=== PATIENT | female | born 1990 | race African-American/Black ===

== ENCOUNTER 2020-02-22 10:19 | Inpatient (IN) ==
[2020-02-22] MEDS ORDERED: MEPERIDINE 50 MG/1 ML VIAL IV PRN (10:42)
[2020-02-22] MEDS ORDERED: ONDANSETRON 4 MG/2 ML VIAL IV PRN ×2 (10:42→17:47)
[2020-02-22] MEDS ORDERED: BUTORPHANOL 2 MG/ML VIAL IV PRN (10:42)
[2020-02-22] MEDS ORDERED: NALOXONE 0.4 MG/ML VIAL IV PRN (10:46)
[2020-02-22] MEDS ORDERED: diphenhydrAMINE 50 MG/1 ML VIAL IV PRN ×2 (10:46)
[2020-02-22] MEDS ORDERED: ePHEDrine 50 MG/ML AMP IV PRN (10:46)
[2020-02-22] MEDS ORDERED: LACTATED RINGERS 1,000 ML IV ONE (10:46)
[2020-02-22] MEDS ORDERED: FAMOTIDINE 20 MG/2 ML VIAL IV ONE (10:46)
[2020-02-22] MEDS ORDERED: CITRIC ACID/SODIUM CITRATE 30 ML UDCUP PO ONE (10:46)
[2020-02-22] MEDS ORDERED: PROMETHAZINE 25 MG/1 ML VIAL IM ONE (10:46)
[2020-02-22] MEDS: LACTATED RINGERS 1,000 ML IV SCH (11:24)
[2020-02-22 11:25] LABS: Basophils % 0.1 % (0.0-0.8); Eosinophils % 0.2 % (0.00-10.9); Hematocrit 36.4 VOL% (35.7-47.0); Hemoglobin 12.2 GM/DL (12.0-16.0); Immature Granulocytes % 0.6 %; Immature Granulocytes Absolute 0.06 #; Lymphocytes # 2.3 10*3/uL (1.4-4.0); Lymphocytes % 21.5 % (21.3-54.2); Mean Corpuscular HGB Conc 33.5 GM/DL (32-36); Mean Corpuscular Volume 93.3 FL (87-102); Mean Platelet Volume 10.8 FL (9.6-12.0); Monocytes % 7.3 % (1.7-12.7); Neutrophils % 70.3 % (38.7-73.9); Platelet Count 191 T/CUMM (130-400); Red Cell Distribution Width 13.1 % (9.3-17.3); White Blood Count 10.6 T/CUMM (4-12)
[2020-02-22] MEDS: fentaNYL 2 MCG/ROPIV 0.2% EPID 100 ML EPIDURAL SCH (12:02)
[2020-02-22] MEDS: OXYTOCIN/LR 20 UNIT/1,000 ML BAG IV SCH ×2 (12:18→18:34)
[2020-02-22 12:50] LABS: Apearance,Urine CLEAR (Clear); Bacteria,Urine Occasional /HPF (Few); Bilirubin,Urine Negative (Negative); Blood, Urine Moderate mg/dL (Negative); Glucose,Urine (UA) Negative (Negative); Ketones,Urine Negative (Negative); Mucus,Urine Occasional /LPF (Occasional); Nitrite,Urine Negative (Negative); Protein,Urine Negative; RBC,Urine 1 /HPF (0-4); Squamous Epithelial Cell,Urine Occasional /HPF (0-10); Urine Color Yellow (Yellow); Urine Specific Gravity 1.015 (1.001-1.035); Urine Urobilinogen < 2.0 EU/DL (0.2-1.0); WBC,Urine 2 /HPF (0-6)
[2020-02-22 13:43] LABS: Apearance,Urine CLEAR (Clear); Bacteria,Urine Occasional /HPF (Few); Bilirubin,Urine Negative (Negative); Blood, Urine Negative (Negative); Glucose,Urine (UA) Negative (Negative); Ketones,Urine Negative (Negative); Mucus,Urine Occasional /LPF (Occasional); Nitrite,Urine Negative (Negative); Protein,Urine Negative; RBC,Urine <1 /HPF (0-4); Squamous Epithelial Cell,Urine Occasional /HPF (0-10); Urine Color Yellow (Yellow); Urine Urobilinogen < 2.0 EU/DL (0.2-1.0); WBC,Urine <1 /HPF (0-6)
[2020-02-22] MEDS ORDERED: ceFAZolin 2,000 MG in PREMIX 1 EACH IV ONE (14:17)
[2020-02-22] MEDS ORDERED: OXYTOCIN/LR 20 UNIT/1,000 ML BAG IV ONE (14:33)
[2020-02-22] MEDS ORDERED: miSOPROStoL 200 MCG TABLET ONE (14:33)
[2020-02-22] MEDS ORDERED: METHYLERGONOVINE 0.2 MG/1 ML AMP ONE (14:34)
[2020-02-22] MEDS ORDERED: CARBOPROST TROMETHAMINE 250 MCG/ML AMP IM ONE (14:34)
[2020-02-22] MEDS ORDERED: LIDOCAINE MPF 2% /EPI 20 ML VIAL ONE (14:35)
[2020-02-22] MEDS ORDERED: fentaNYL 100 MCG/2 ML VIAL ONE ×2 (14:36→15:48)
[2020-02-22] MEDS ORDERED: propofoL 200 MG/20 ML VIAL IV ONE (15:48)
[2020-02-22] MEDS ORDERED: MIDAZOLAM 2 MG/2 ML VIAL ONE (15:48)
[2020-02-22] MEDS ORDERED: SUCCINYLCHOLINE 200 MG/10 ML VIAL ONE (15:49)
[2020-02-22] MEDS: HYDROmorphone 2 MG/1 ML VIAL IV PRN ×2 (15:55→17:34)
[2020-02-22] MEDS ORDERED: oxyCODONE/ACETAMINOPHEN 5-325 MG TABLET PO PRN (17:47)
[2020-02-22] MEDS ORDERED: WITCH HAZEL PADS 100/JAR TOP PRN (17:47)
[2020-02-22] MEDS ORDERED: DIPH/TET/ACEL PERT BOOSTER VACCINE 0.5 ML VIAL IM ONE (17:47)
[2020-02-22] MEDS ORDERED: MEASLES/MUMPS/RUBELLA VACCINE 0.5 ML VIAL SUBCUT ONE (17:47)
[2020-02-22] MEDS ORDERED: HYDROCORTISONE 2.5% RECTAL CREAM 30 GM TUBE TOP PRN (17:47)
[2020-02-22] MEDS ORDERED: RHO(D) IMMUNE GLOBULIN 300 MCG SYRINGE IM ONE (17:47)
[2020-02-22] MEDS ORDERED: LANOLIN 50% CREAM 0.3 OZ TUBE TOP PRN (17:47)
[2020-02-22] MEDS ORDERED: BISACODYL 10 MG SUPP RECTAL PRN (17:47)
[2020-02-22] MEDS ORDERED: BENZOCAINE 20%/MENTHOL 0.5% SPRAY 56 GM CAN TOP PRN (17:47)
[2020-02-22] MEDS ORDERED: ACETAMINOPHEN 325 MG TABLET PO PRN (17:47)
[2020-02-22] MEDS: IBUPROFEN 800 MG TABLET PO PRN (18:05)
[2020-02-22] MEDS: DOCUSATE SODIUM 100 MG CAPSULE PO SCH (21:09)
[2020-02-22] MEDS: ceFAZolin 1,000 MG in SYRINGE 1 EACH IV SCH (22:30)
[2020-02-23] MEDS: LACTATED RINGERS 1,000 ML IV SCH ×3 (01:31→02:52)
[2020-02-23] MEDS: fentaNYL 2 MCG/ROPIV 0.2% EPID 100 ML EPIDURAL SCH (01:44)
[2020-02-23] MEDS: oxyCODONE/ACETAMINOPHEN 5-325 MG TABLET PO PRN ×3 (03:58→17:50)
[2020-02-23] MEDS: IBUPROFEN 800 MG TABLET PO PRN ×2 (03:59→13:06)
[2020-02-23 05:49] LABS: Basophils % 0.2 % (0.0-0.8); Eosinophils % 0.1 % (0.00-10.9); Hematocrit 31.3 VOL% (35.7-47.0); Hemoglobin 10.6 GM/DL (12.0-16.0); Immature Granulocytes % 0.6 %; Lymphocytes # 1.7 10*3/uL (1.4-4.0); Lymphocytes % 10.1 % (21.3-54.2); Mean Corpuscular HGB Conc 33.9 GM/DL (32-36); Mean Corpuscular Volume 91.8 FL (87-102); Mean Platelet Volume 10.8 FL (9.6-12.0); Monocytes % 6.5 % (1.7-12.7); Neutrophils % 82.5 % (38.7-73.9); Platelet Count 165 T/CUMM (130-400); Red Blood Count 3.41 MC/CUMM (3.8-5.5); White Blood Count 16.6 T/CUMM (4-12)
[2020-02-23] MEDS: ceFAZolin 1,000 MG in SYRINGE 1 EACH IV SCH (06:16)
[2020-02-23] MEDS: DOCUSATE SODIUM 100 MG CAPSULE PO SCH ×2 (09:34→22:07)
[2020-02-23] MEDS: MAGNESIUM HYDROXIDE SUSP 30 ML UDCUP PO PRN ×2 (09:35→22:07)
[2020-02-23] MEDS: SIMETHICONE CHEW 80 MG TABLET PO PRN ×2 (13:07→22:17)
[2020-02-23] MEDS: cephALEXin 500 MG CAPSULE PO SCH (22:07)
[2020-02-24] MEDS: IBUPROFEN 800 MG TABLET PO PRN (08:21)
[2020-02-24] MEDS: DOCUSATE SODIUM 100 MG CAPSULE PO SCH (08:21)
[2020-02-24] MEDS: oxyCODONE/ACETAMINOPHEN 5-325 MG TABLET PO PRN (08:22)
[2020-02-24] MEDS: cephALEXin 500 MG CAPSULE PO SCH (09:09)
[2020-02-24 11:24] VITALS: BP 110/64
== END 2020-02-24 12:40 | disposition home or self-care (01) | DRG 540 ==
LOC: N.LDOUT 10:19 → N.LD 10:26 → N.OB 02-23 08:11
PROVIDERS: ADMIT Obstetrics & Gynecology; ATTEND Obstetrics & Gynecology
PROC: LDCSECT (ICD-10-PCS; 2020-02-22 15:00)